=== PATIENT | female | born 1930 | race Two or more races ===

== ENCOUNTER 2017-10-04 11:16 | Outpatient (CLI) | payer OTHER | END 2017-10-04 11:22 | disposition home or self-care (01) | LOC: RAD 11:16 | DX: M79.642 Pain in left hand (principal) ==

== ENCOUNTER 2017-12-05 17:20 | Outpatient (CLI) | payer OTHER | END 2017-12-05 17:39 | disposition home or self-care (01) | LOC: RAD 17:20 | DX: M25.541 Pain in joints of right hand (principal); M12.541 Traumatic arthropathy, right hand; M54.89 Other dorsalgia; M54.6 Pain in thoracic spine; M54.5 Low back pain ==